=== PATIENT | female | born 1980 | race Caucasian/White ===

== ENCOUNTER 2019-08-18 07:08 | Day surgery (SDC) | payer BC ==
[~2019-08-18] VITALS: Ht 167.6 cm; Wt 89.4 kg
[~2019-08-18 07:08] MED LIST: CYCLOBENZAPRINE10 MG PO; ORAL CONTRACEPTIVES; TRI-SPRINTEC TAB
[2019-08-18 07:41] LABS: HEMATOCRIT 40.5 % (36.0-48.0); HEMOGLOBIN 13.6 g/dL (12-16); MCH 32.2 pg (26.0-34.0); MCHC 33.6 g/dL (31.0-37.0); MCV 95.7 fL (80.0-100.0); MEAN PLATELET VOLUME 9.3 fL (7.4-10.4); RBC 4.23 10x6/uL (4.00-5.40); RDW 13.1 % (11.5-14.5); WBC 5.8 10x3/uL (4.8-10.8)
[2019-08-18 08:22] VITALS: BP 116/79; Ht 167.6 cm; Wt 89.4 kg
[2019-08-18 08:35] LABS: HCG URINE NEGATIVE (NEGATIVE)
[2019-08-18] MEDS ORDERED: VISTARIL50 MG PO (11:30)
[2019-08-18] MEDS ORDERED: DILAUDID4 MG PO (11:30)
[2019-08-18] MEDS ORDERED: ZOFRAN ODT4 MG/UDTAB PO (11:31)
--- NOTE | 2019-08-19 09:41 | OP ---
PATIENT NAME: EVA VALLEJO MEDICAL RECORD: [id number] :80 LOCATION:[facility] ADMISSION DATE: SURGEON: JONATHAN WHITE DO DATE OF OPERATION: 08/18/2019 PROCEDURE PERFORMED: Right shoulder arthroscopy with labral repair and subacromial decompression. 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 INDICATIONS: Ms. Vallejo is a 39-year-old female who presented to the ER a couple of weeks ago with a dislocated shoulder. We reduced in the ER how to follow up, got an MRI and it showed a large labral tear a small Hill-Sachs, not large enough to cause instability, but the anterior labrum was torn completely. She had had this happen several times, she had 4 to 5, but never had stayed out. She said this first happened when she was 19 or 20 and started dealing with this and wants something done surgically, informed her we could fix it, but should be at risk for recurrent dislocations, as well as stiffness, pain, damage to nerves and vessels, need for further surgery, and even and she signed a consent. SURGEON: Jonathan White DO DESCRIPTION OF PROCEDURE: The patient received a block by anesthesia in the preoperative area and taken to the operative suite. A left lateral decubitus position with the right arm up. She was then sedated. Hohmann was placed, given 900 mg of clindamycin preoperatively. The right shoulder was then prepped and draped in sterile fashion and a timeout was performed, everyone was in agreement with correct side, site, patient and procedure. We then proceeded by inserting an 18-gauge needle into the joint through the posterior portal and inflating it with 60 mL normal saline. Then, with a #11 blade scalpel established inferior and posterior portal. I then entered into the joint. The camera was entered and established 2 anterior portals and ended up just going with 1, it was little crowded then used a rasp to loosen the soft tissue on the anterior glenoid and used a hook to grasp the anterior labrum as well as some of the soft tissue and do capsular advancement onto the glenoid face. I did that 3 times and then after each pass I passed back through and put a drill hole up on the face of the glenoid and put anchors in and I did this 3 times on the anterior labrum and then one at the 5 o'clock, 4 o'clock and 3 o'clock position and then one at the 1 o'clock position. This made a nice bumper and then checked it through the anterior portal and went to the subacromial space and did a decompression. She is quite inflamed there. Using one of the anterior portals with a shaver then turned off the water and turned suction on and then she was closed by Willem Monzon, certified school health assistant with 4-0 Monocryl in inverted interrupted fashion in all 3 of the portal sites and she was dressed with Dermabond, Telfa, and Tegaderm put in a sling, awakened, and taken to recovery in stable condition. BLOOD LOSS: Minimal. COMPLICATIONS: None. OPERATIVE REPORT [id number] EVA VALLEJO After the labral repair, I did test the shoulder and it did not dislocate and did not sublux either. It was in good position and centered in the glenoid. TRANSINT:[id number] Voice Confirmation ID: [id number] DOCUMENT ID: [id number] JONATHAN WHITE DO at 0941 CC: [id number] DICTATION DATE: 08/18/19 112 BREAST PULLER: 08/18/192204 [facility] 08/18/19 [facility] [address] [place] [address]
== END 2019-08-18 13:55 | disposition home or self-care (01) ==
LOC: D.OPS 07:08 → D.PAN 09:45 → D.OPS 10:30 → D.PAN 12:10 → D.OPS 13:55
PROVIDERS: Anesthesiology; ATTEND Orthopaedic Surgery
DX: M75.41 Impingement syndrome of right shoulder (principal); S43.004D Unspecified dislocation of right shoulder joint, subsequent encounter; S43.431D Superior glenoid labrum lesion of right shoulder, subsequent encounter